=== PATIENT | male | born 1955 | race Caucasian/White ===

== ENCOUNTER → 2019-05-23 | Outpatient (CLI) | payer MEDICARE ==
--- NOTE | 2019-05-23 17:19 | PCVCIMAG ---
APPROVED REPORT Study performed: 05/23/2019 15:45:43 Exam: Stress Echocardiogram Indication: CAD, elevated coronary calcium score, Family Hx early onset CAD Patient Location: Echo lab Stress Nurse: Leslie Jasso RN Room #: 2 Status: routine Ht: 5 ft 10 in HR: 66 bpm BP: 120/78 mmHg Rhythm: NSR Medical History Medical History: Hyperlipidemia Cardiac Risk Factors: FHX of CAD, Hyperlipidemia Previous Cardiac Procedures: none Pretest Chest Pain Characteristics: No chest pain Exercise History: Physically active Procedure The patient underwent an Exercise Stress Test using the Ehsan Protocol. Blood pressure, heart rate, and EKG were monitored. An Echocardiogram was performed by casting technician in four stages in quad fashion. At peak stress, four selected images were obtained and placed side by side with resting images for comparison. Stress Test Details Stress Test: Exercise stress testing was performed using a Ehsan protocol. HR Resting HR: 66 bpmMax Heart Rate (APMHR): 155 bpm Max HR Achieved: 169 bpmTarget HR (85% APMHR): 131 bpm % of APMHR: 109 Recovery HR: 93 bpm HR response to stress: Normal HR response to stress BP Resting BP: 120/78 mmHg Max BP: 156/82 mmHg Recovery BP: 126/78 mmHg BP response to stress: Normal blood pressure response to stress. ECG Resting ECG: Sinus Rhythm Stress ECG: Sinus Rhythm ST Change: Horizontal ST depression Maximum ST Deviation: -4.0 mm Arrhythmia: Occ PACs, Rare PVCs Recovery ECG: Sinus Rhythm Recovery ST Change: Non-ischemic Recovery ST Deviation: -0.35 mm Recovery Arrhythmia: None Clinical Reason for Termination: Maximal effort Stress Symptoms: fatigue Exercise duration: 12 min 35 sec Highest Stage Achieved: Stage 5: 5.0 mph at 18% grade. Exercise capacity: 15.5 METs Overall Exercise Capacity for Age: Excellent Scale: Active Angina Score: None No complications. Stress ECG Conclusion [place] Treadmill Score is 32.0 which is Low risk. Pre-Stress Echo The resting Echocardiogram showed normal left ventricular contractility with an estimated Ejection Fraction of about 55-60%. Normal wall motion in all segments on baseline images. Post-Stress Echo The stress Echocardiogram showed normal left ventricular contractility with an estimated Ejection Fraction of about 65-70%. Normal augmentation of wall motion in all segments on post stress images. Clinical No clinical evidence for ischemia. Conclusion Clinical Response: Non-ischemic Exercise Capacity: Superior Stress ECG Response: Equivocal Stress Echo Images: Non-ischemic Normal stress echocardiogram with maximal exercise stress. Upsloping/equivical ST depression is seen at peak stress which normalizes immediately post . Aortic stenosis is seen with moderate sclerotic changes in a trileaflet valve. The peak gradient is18.6, the mean gradient is 9.7 and the ARI is 1.5cm2. Mild tricuspid regurgitation with normal PA pressure, <Conclusion> Normal stress echocardiogram with maximal exercise stress. Upsloping/equivical ST depression is seen at peak stress which normalizes immediately post . Aortic stenosis is seen with moderate sclerotic changes in a trileaflet valve. The peak gradient is18.6, the mean gradient is 9.7 and the ARI is 1.5cm2. Mild tricuspid regurgitation with normal PA pressure,
== END | disposition home or self-care (01) ==
LOC: PCVCIMAG 15:08
PROVIDERS: ATTEND Internal Medicine Cardiovascular Disease
DX: I08.2 Rheumatic disorders of both aortic and tricuspid valves (principal); Z82.49 Family history of ischemic heart disease and other diseases of the circulatory system; Z90.09 Acquired absence of other part of head and neck; Z72.89 Other problems related to lifestyle
CPT/HCPCS: 93325; 93351